=== PATIENT | female | born 1970 | race Hispanic/Latino ===

== ENCOUNTER 2020-02-06 19:54 | Emergency (ER) | payer OTHER, SELFPAY ==
[2020-02-06] MEDS ORDERED: traMADol HCl 50 MG TAB ONE (20:37)
== END 2020-02-06 20:45 | disposition home or self-care (01) ==
LOC: ERS 19:54
DX: N64.4 Mastodynia (principal); M79.621 Pain in right upper arm
CPT/HCPCS: 99283